=== PATIENT | male | born 1975 | race Caucasian/White ===

== ENCOUNTER 2016-10-06 22:30 | Emergency (ER) | payer SELFPAY ==
[2016-10-06 22:50] VITALS: TEMP 98.5; BMI 25.9
[2016-10-06] MEDS ORDERED: ONDANSETRON HCL 4 MG/2 ML VIAL IV ONE (23:01)
[2016-10-06] MEDS ORDERED: NS 1,000 ML IV ONE (23:01)
[2016-10-06] MEDS ORDERED: MORPHINE 4 MG/ML INJECTION IV ONE (23:01)
[2016-10-06 23:15] LABS: AUTOMATED BASOPHIL 1.3 % (0-2); AUTOMATED EOSINOPHIL 3.6 % (0-5); AUTOMATED MONOCYTE 11.5 % (3-10); AUTOMATED NEUTROPHIL 50.6 % (45-76); MPV 9.4 fL (7.4-10.4)
[2016-10-06 23:24] LABS: PARTIAL THROMB. TIME 24.2 SEC (22-35)
--- NOTE | 2016-10-06 23:32 | EDPRACDOC ---
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 THE PAIN BECAME WORSE TODAY. STATES HE HAS HAD MULTIPLE EPISODE OF VOMITING. DENIES CHILLS OR FEVER, DENIES RADIATION OF THE PAIN OR DIAPHORESIS. Chest Pain Location: Reports: Substernal Pain Radiation: Reports: None Symptoms Occur: Reports: Gradually Cardiac Risk Factors: Reports: Smoker Cardiac History of: Reports: None PE Risk Factors: Reports: None Medications within 24 Hours: Reports: None Prehospital Care: Reports: None Pain Came On: Reports: Gradually Pain Status: Present Now Pain Description: Reports: Tightness Pain Severity: Mild Pain Worsens With: Reports: Nothing Pain Improves With: Reports: Nothing Associated Signs and Symptoms: Reports: Abdominal Pain, Nausea, Vomiting ED Past Medical History - History Reviewed Yes Nurses notes reviewed and agree except as marked - Patient Medical History GI/ History: Reports: Gastroesophageal Reflux Psychological History: Reports: Anxiety, Bipolar Disorder. Denies: Depression - Family Medical History Reports: Hypertension, Cancer. Denies: Diabetes, Stroke, Cardiac Disorders - Social Medical History Smoking Status: Heavy tobacco smoker (5 or more cigarettes/day or daily pipe/ cigar) EDM Review of Systems - Review of Systems ROS Negative Except as Marked: Yes All systems reviewed and were negative except as marked - Physical Exam Constitutional: Alert Oriented to: Time, Person, Place Last recorded Vital Signs: Last Vital Signs Temp 98.5 F 10/06/16 22:43 Pulse 95 10/06/16 23:24 Resp 20 10/06/16 23:24 BP 134/94 10/06/16 23:24 Pulse Ox 95 10/06/16 23:24 Oxygen Pulse Oxygen Saturation 95 O2 Device Room Air Oxygen Flow Rate Fraction of Inspired Oxygen ( FIO2) - HEENT Head: Normal ( normocephalic) Eye Exam: Normal (PERRL, EOMI, Sclera white) Oropharynx: Normal (Pharynx:Moist without exudate,Gums-no swelling) Nose: No Symptoms Reported (septum midline) Neck: Normal (FROM, trachea at midline) - Respiratory/Cardiovascular Respiratory: Normal - CTA (BBS clear to auscultation without adventitious sounds ) Cardiovascular: Normal (RRR without murmur, gallop or rub) - GI Auscultation: Normal (NABS) Palpation: Normal (Soft,No rebound or guarding, non distended) Tenderness: Moderate, RUQ Song's Sign: Negative Rectal Exam: Deferred - Musculoskeletal Back: Normal (Non-Tender) Extremities: Normal (Normal tone, Pulses 2+ No cyanosis or edema, FROM) - Integumentary Skin: Normal, Warm, Dry Lymphatics: Normal (no adenopathy) - Neurologic Memory Impaired: Normal Motor Function: Normal (Normal tone, Pulses 2+ No cyanosis or edema, FROM) Cranial Nerve: Normal (CN II-X11 intact sensation, strength 5/5) Cerebellar: Normal Mood Description: Normal Perception: Normal ED Chest Pain Exam - Respiratory/Cardiovascular Respiratory: Normal - CTA Cardiovascular/Chest: Normal Radial Pulse: Normal Femoral Pulse: Normal Pedal Pulse: Normal Carotid Arteries: Normal Edema: negative: 1+, 2+, 3+, 4+, 5, 6 Chest Palpation: Normal - Differential Diagnosis Cholelithiasis - Action Patient received Aspirin within last 24 hours?: No ASA given in the ED: No Patient received Beta Camille within last 24hrs: No - Results All Results Reviewed and Normal except as Highlighted below: Yes 10/06/16 23:00 10/06/16 23:00 WBC 11.6 xk/uL (3.8-10.8) H 10/06/16 23:00 RBC 5.01 xM/uL (4.70-6.10) 10/06/16 23:00 Hgb 14.5 g/dL (14.0-18.0) 10/06/16 23:00 Hct 42.7 % (42-52) 10/06/16 23:00 MCV 85 fL (80-94) 10/06/16 23:00 MCH 29.0 pg (27-32) 10/06/16 23:00 MCHC 34.0 g/dl (33-36) 10/06/16 23:00 RDW 13.7 % (11.5-14.5) 10/06/16 23:00 Plt Count 220 xk/uL (130-400) 10/06/16 23:00 MPV 9.4 fL (7.4-10.4) 10/06/16 23:00 Neut % (Auto) 50.6 % (45-76) 10/06/16 23:00 Lymph % (Auto) 33.0 % (17-44) 10/06/16 23:00 [place] % (Auto) 11.5 % (3-10) H 10/06/16 23:00 Eos % (Auto) 3.6 % (0-5) 10/06/16 23:00 Baso % (Auto) 1.3 % (0-2) 10/06/16 23:00 Absolute Neuts (auto) 5.80 xk/uL (1.7-8.2) 10/06/16 23:00 Absolute Lymphs (auto) 3.83 xk/uL (0.65-4.75) 10/06/16 23:00 PT 10.3 SEC (9.2-11.2) 10/06/16 23:00 INR 1.0 10/06/16 23:00 APTT 24.2 SEC (22-35) 10/06/16 23:00 Lab Results 10/06/16 10/06/16 23:00 23:00 WBC 11.6 H RBC 5.01 Hgb 14.5 Hct 42.7 MCV 85 MCH 29.0 MCHC 34.0 RDW 13.7 Plt Count 220 MPV 9.4 Neut % (Auto) 50.6 Lymph % (Auto) 33.0 [place] % (Auto) 11.5 H Eos % (Auto) 3.6 Baso % (Auto) 1.3 Absolute Neuts (auto) 5.80 Absolute Lymphs (auto) 3.83 PT 10.3 INR 1.0 APTT 24.2 Laboratory Results - last 24 hr 10/06/16 10/06/16 23:00 23:00 WBC 11.6 H RBC 5.01 Hgb 14.5 Hct 42.7 MCV 85 MCH 29.0 MCHC 34.0 RDW 13.7 Plt Count 220 MPV 9.4 Neut % (Auto) 50.6 Lymph % (Auto) 33.0 [place] % (Auto) 11.5 H Eos % (Auto) 3.6 Baso % (Auto) 1.3 Absolute Neuts (auto) 5.80 Absolute Lymphs (auto) 3.83 PT 10.3 INR 1.0 APTT 24.2 Laboratory Results 10/06/16 23:00 Decision Time to Discharge: 00:29 - Departure Disposition: Home Condition: Stable Final Diagnosis: Fatty liver Upper respiratory infection Qualifiers: URI type: unspecified URI Qualified Code(s): J06.9 - Acute upper respiratory infection, unspecified Instructions: Upper Respiratory Infection (ED), Non-Alcoholic Fatty Liver Disease (ED) Education/Counseling Given To: Patient Education/Counseling Given Regarding: Diagnosis, Treatment, Prognosis, Follow Up Referrals: Denisa Cantor PA [Primary Care Provider] - One Week Prescriptions: Azithromycin [Zithromax] 250 mg PO DAILY #6 tablet Ketorolac Tromethamine [Toradol] 10 mg PO Q6H PRN #20 tab PRN Reason: Pain Prednisone [Deltasone, Orasone] 20 mg PO BID #12 tab Additional Instructions: INCREASE FLUID INTAKE. FOLLOW UP WITH PRIMARY CARE PROVIDER NEXT WEEK. TAKE ALL ANTIBIOTICS PRESCRIBED. RETURN TO THE ED FOR WORSENING SYMPTOMS OR CONCERNS. PLEASE MAKE A FOLLOW UP APPOINTMENT WITH PCP AND REQUEST A HIDA SCAN OF YOUR GALLBLADDER.
[2016-10-06 23:48] LABS: BLOOD UREA NITROGEN 13 MG/DL (9-20); CALCIUM 9.1 MG/DL (8.4-10.2); CALCULATED OSMOLALITY 271 MOs/Kg (270-290); CHLORIDE 104 mEq/L (98-107); GLUCOSE 100 MG/DL (70-99); SODIUM LEVEL 141 mEq/L (137-146); TOTAL PROTEIN 7.1 G/DL (6.3-8.2)
[2016-10-06 23:55] LABS: CPK TOTAL WITH POSSIBLE MB 133 IU/L (55-170)
--- NOTE | 2016-10-06 23:55 | DIRPT ---
CLINICAL DATA: Chest tightness with nausea and vomiting. EXAM: CHEST 2 VIEW COMPARISON: None. FINDINGS: The cardiomediastinal contours are normal. Mild hyperinflation. Trace subsegmental atelectasis at the left lung base. Pulmonary vasculature is normal. No consolidation, pleural effusion, or pneumothorax. No acute osseous abnormalities are seen. IMPRESSION: Mild hyperinflation. No localizing process. Electronically Signed By: Dottie Kinsey M.D. On: 10/06/2016 23:53
--- NOTE | 2016-10-07 00:27 | DIRPT ---
CLINICAL DATA: Acute onset of right upper quadrant abdominal pain, nausea and vomiting. Initial encounter. EXAM: US ABDOMEN LIMITED - RIGHT UPPER QUADRANT COMPARISON: CT of the abdomen and pelvis from 08/23/2014 FINDINGS: Gallbladder: No gallstones or wall thickening visualized. No sonographic Song sign noted by frame cleaner. Common bile duct: Diameter: 0.2 cm, within normal limits in caliber. Liver: No focal lesion identified. Diffusely increased parenchymal echogenicity and coarsened echotexture, compatible with fatty infiltration. There is fatty sparing anterior to the gallbladder fossa. IMPRESSION: 1. No acute abnormality seen in the right upper quadrant. 2. Diffuse fatty infiltration within the liver. Electronically Signed By: Tommy Duenas M.D. On: 10/07/2016 00:24
[2016-10-07 00:35] LABS: LEUKOCYTES/URINE NEG (NEGATIVE); NITRITE/URINE NEG (NEGATIVE); URINE OCCULT BLOOD 1+ (NEG/TRACE); WBC/URINE 0-2 (0-2)
[2016-10-07 01:00] VITALS: BP 130/90; PULSE 90
== END 2016-10-07 00:55 | disposition home or self-care (01) ==
LOC: ED 22:30
DX: K76.0 Fatty (change of) liver, not elsewhere classified (principal); J06.9 Acute upper respiratory infection, unspecified; F17.200 Nicotine dependence, unspecified, uncomplicated
CPT/HCPCS: 36415; 71020; 76705; 80053; 81001; 82550; 83880; 84484; 85025; 85610; 85730; 93005; 96361; 96374; 96375; 99284; J2270; J2405